=== PATIENT | male | born 1980 | race Caucasian/White ===

== ENCOUNTER 2023-02-21 14:08 | Outpatient (REF) | payer OTHER, SELFPAY ==
[2023-02-21 16:13] LABS: MANUAL DIFF FLAG NO
[2023-02-21 16:19] LABS: Basophils Percent Auto 0.4 % (0-2); Eosinophils Absolute Auto 0.1 X10*3/uL (0.0-0.4); Eosinophils Percent Auto 2.1 % (0-4); Hematocrit 43.9 % (42.0-52.0); Hemoglobin 14.6 g/dl (14.0-18.0); Imm Gran Abs Auto 0.02 X10*3/uL (0.00-0.03); Imm Gran Pct Auto 0.4 % (0.0-0.4); Lymphocytes Absolute Auto 2.1 X10*3/uL (1.2-4.9); Lymphocytes Percent Auto 41.2 % (20-40); Mean Corpuscular HGB Conc 33.3 g/dl (31.0-36.0); Mean Corpuscular Hemoglobin 30.6 pg (27.0-33.0); Mean Platelet Volume 11.3 fL (9.4-12.4); Monocytes Absolute Auto 0.5 X10*3/uL (0.1-1.2); Monocytes Percent Auto 9.1 % (2-11); Neutrophils Absolute Auto 2.4 x10*3/uL (2.0-8.3); Neutrophils Percent Auto 46.8 % (45-73); Platelet Count 333 X10*3/uL (160-400); Red Blood Count 4.77 X10*6/uL (4.60-5.80); Red Cell Distribution Width 14.9 % (11.0-16.0); White Blood Count 5.2 X10*3/uL (4.8-10.8)
[2023-02-21 16:27] LABS: Alanine Aminotransferase 59 U/L (0-40); Albumin Level 4.4 g/dL (3.5-5.0); Alkaline Phosphatase 73 U/L (39-117); Anion Gap 12 (12-20); Aspartate Amino Transferase 34 U/L (5-37); Bilirubin Total 0.2 mg/dL (0.0-1.0); Blood Urea Nitrogen 14 mg/dL (9-16); Calcium 9.5 mg/dL (8.4-10.2); Carbon Dioxide 28 mmol/L (22-29); Chloride 106 mmol/L (96-108); Estimated Glomerular Filt Rate > 60; Glucose Random 92 mg/dL (60-115); Potassium 4.5 mmol/L (3.3-5.1); Sodium 141 mmol/L (135-145); Total Protein 7.3 g/dL (6.5-8.0)
[2023-02-22 09:04] LABS: Syphilis Screen Reactive (Nonreactive)
[2023-02-23 19:08] LABS: HIV RNA PCR Qn Copies 287 copies/mL (NOT DETECTED); HIV RNA PCR Qn Log Copies 2.46 (NOT DETECTED)
[2023-02-25 07:03] LABS: Absolute CD3 Count 1506 cells/uL (840-3060); Absolute CD4 Count 847 cells/uL (490-1740); Absolute CD8 Count 686 cells/uL (180-1170); Absolute Lymphocytes 2475 cells/uL (850-3900); CD4 CD8 Ratio 1.24 (0.86-5.00); Percent CD3 Cells 61 % (57-85); Percent CD4 Cells 34 % (30-61); Percent CD8 Cells 28 % (12-42)
[2023-03-03 14:41] LABS: RPR Quantitative Reactive 1:8 (Nonreactive); T.Pallidum Particle Agg Test Reactive (Nonreactive)
== END 2023-02-21 14:09 | disposition home or self-care (01) ==
LOC: HO.HHCL 14:08
PROVIDERS: Visit Provider Internal Medicine
DX: B20 Human immunodeficiency virus [HIV] disease (principal)
CPT/HCPCS: 36415; 80053; 82550; 85025; 86359; 86360; 86592; 86780; 87536

== ENCOUNTER 2023-04-04 14:27 | Outpatient (REF) | payer OTHER, SELFPAY ==
[2023-04-06 13:18] LABS: HIV RNA PCR Qn Copies 331 copies/mL (NOT DETECTED); HIV RNA PCR Qn Log Copies 2.52 (NOT DETECTED)
[2023-04-14 17:09] LABS: HIV 1 Integrase Proviral DNA DETECTED; HIV 1 PR RT Proviral DNA DETECTED
== END 2023-04-04 14:28 | disposition home or self-care (01) ==
LOC: HO.HHCL 14:27
PROVIDERS: Visit Provider Internal Medicine
DX: B20 Human immunodeficiency virus [HIV] disease (principal)
CPT/HCPCS: 36415; 87536; 87900; 87901; 87906

== ENCOUNTER 2023-06-17 13:23 | Outpatient (REF) | payer OTHER, SELFPAY ==
[2023-06-21 19:00] LABS: HIV RNA PCR Qn Copies 181 copies/mL (NOT DETECTED); HIV RNA PCR Qn Log Copies 2.26 (NOT DETECTED)
== END 2023-06-17 13:24 | disposition home or self-care (01) ==
LOC: HO.HHCL 13:23
PROVIDERS: Visit Provider Internal Medicine
DX: B20 Human immunodeficiency virus [HIV] disease (principal)
CPT/HCPCS: 36415; 87536

== ENCOUNTER 2023-07-09 13:59 | Outpatient (REF) | payer OTHER, SELFPAY ==
[2023-07-09 16:09] LABS: MANUAL DIFF FLAG NO
[2023-07-09 16:19] LABS: Basophils Percent Auto 0.2 % (0-2); Eosinophils Absolute Auto 0.1 X10*3/uL (0.0-0.4); Eosinophils Percent Auto 2.4 % (0-4); Hematocrit 47.3 % (42.0-52.0); Hemoglobin 16.3 g/dl (14.0-18.0); Imm Gran Abs Auto 0.02 X10*3/uL (0.00-0.03); Imm Gran Pct Auto 0.4 % (0.0-0.4); Lymphocytes Percent Auto 36.7 % (20-40); Mean Corpuscular HGB Conc 34.5 g/dl (31.0-36.0); Mean Corpuscular Hemoglobin 31.5 pg (27.0-33.0); Mean Corpuscular Volume 91.3 fL (80.0-98.0); Monocytes Absolute Auto 0.6 X10*3/uL (0.1-1.2); Monocytes Percent Auto 10.2 % (2-11); Neutrophils Absolute Auto 2.7 x10*3/uL (2.0-8.3); Neutrophils Percent Auto 50.1 % (45-73); Platelet Count 260 X10*3/uL (160-400); Red Blood Count 5.18 X10*6/uL (4.60-5.80); Red Cell Distribution Width 15.4 % (11.0-16.0); White Blood Count 5.5 X10*3/uL (4.8-10.8)
[2023-07-09 16:38] LABS: Alanine Aminotransferase 30 U/L (0-40); Albumin Level 4.4 g/dL (3.5-5.0); Alkaline Phosphatase 82 U/L (39-117); Anion Gap 12 (12-20); Aspartate Amino Transferase 22 U/L (5-37); Bilirubin Total 0.2 mg/dL (0.0-1.0); Blood Urea Nitrogen 16 mg/dL (9-16); Calcium 9.6 mg/dL (8.4-10.2); Carbon Dioxide 26 mmol/L (22-29); Chloride 105 mmol/L (96-108); Estimated Glomerular Filt Rate > 60; Glucose Random 88 mg/dL (60-115); Potassium 4.4 mmol/L (3.3-5.1); Sodium 139 mmol/L (135-145); Total Protein 7.8 g/dL (6.5-8.0)
[2023-07-12 10:13] LABS: Absolute CD3 Count 1517 cells/uL (840-3060); Absolute CD4 Count 859 cells/uL (490-1740); Absolute CD8 Count 669 cells/uL (180-1170); Absolute Lymphocytes 2170 cells/uL (850-3900); CD4 CD8 Ratio 1.28 (0.86-5.00); Percent CD3 Cells 70 % (57-85); Percent CD4 Cells 40 % (30-61); Percent CD8 Cells 31 % (12-42)
[2023-07-12 14:22] LABS: HIV RNA PCR Qn Copies 48 copies/mL (NOT DETECTED); HIV RNA PCR Qn Log Copies 1.68 (NOT DETECTED)
== END 2023-07-09 14:00 | disposition home or self-care (01) ==
LOC: HO.HHCL 13:59
PROVIDERS: Visit Provider Internal Medicine
DX: B20 Human immunodeficiency virus [HIV] disease (principal)
CPT/HCPCS: 36415; 80053; 85025; 86359; 86360; 87536

== ENCOUNTER 2023-10-24 14:40 | Outpatient (REF) | payer MEDICARE, SELFPAY ==
--- NOTE | ~2023-10-24 | XR_ITS ---
EXAMINATION: XR LUMBOSACRAL SPINE CLINICAL INFORMATION: Low back pain without sciatica COMPARISON: None available. TECHNIQUE: 5 views of the lumbosacral spine. FINDINGS: Mild degenerative changes are present spine with spondylitic endplate changes. There is marked grade 1 anterolisthesis of L5 upon S1 with a suspicion of bilateral pars defects at L5. Vertebral body heights and disc spaces are relatively well maintained. There is some mild narrowing at L4-L5. No fractures or bony destructive lesions XR/XR lumbar spine 2-3V IMPRESSION: Grade 1 anterolisthesis of L5 upon S1 with suspicion of bilateral pars defects at L5.
== END 2023-10-24 14:41 | disposition home or self-care (01) ==
LOC: HO.HHCX 14:40
PROVIDERS: Visit Provider Emergency Medicine
DX: M54.50 Low back pain, unspecified (principal)
CPT/HCPCS: 72100

== ENCOUNTER 2024-03-06 13:46 | Outpatient (REF) | payer OTHER, SELFPAY ==
[2024-03-06 16:29] LABS: MANUAL DIFF FLAG NO
[2024-03-06 16:39] LABS: Basophils Percent Auto 0.4 % (0-2); Eosinophils Absolute Auto 0.1 X10*3/uL (0.0-0.4); Eosinophils Percent Auto 2.6 % (0-4); Hematocrit 45.4 % (42.0-52.0); Hemoglobin 15.3 g/dl (14.0-18.0); Imm Gran Abs Auto 0.01 X10*3/uL (0.00-0.03); Imm Gran Pct Auto 0.2 % (0.0-0.4); Lymphocytes Absolute Auto 2.3 X10*3/uL (1.2-4.9); Lymphocytes Percent Auto 46.6 % (20-40); Mean Corpuscular HGB Conc 33.7 g/dl (31.0-36.0); Mean Corpuscular Hemoglobin 31.4 pg (27.0-33.0); Mean Platelet Volume 11.3 fL (9.4-12.4); Monocytes Absolute Auto 0.4 X10*3/uL (0.1-1.2); Monocytes Percent Auto 7.6 % (2-11); Neutrophils Absolute Auto 2.1 x10*3/uL (2.0-8.3); Neutrophils Percent Auto 42.6 % (45-73); Platelet Count 317 X10*3/uL (160-400); Red Blood Count 4.88 X10*6/uL (4.60-5.80); Red Cell Distribution Width 14.3 % (11.0-16.0)
[2024-03-06 17:01] LABS: Alanine Aminotransferase 30 U/L (0-40); Albumin Level 4.5 g/dL (3.5-5.0); Alkaline Phosphatase 95 U/L (39-117); Anion Gap 12 (12-20); Aspartate Amino Transferase 24 U/L (5-37); Bilirubin Total 0.3 mg/dL (0.0-1.0); Blood Urea Nitrogen 13 mg/dL (9-16); Calcium 10.3 mg/dL (8.4-10.2); Carbon Dioxide 25 mmol/L (22-29); Chloride 106 mmol/L (96-108); Cholesterol 225 mg/dL (<200); Estimated Glomerular Filt Rate > 60; Glucose Random 88 mg/dL (60-115); HDL Cholesterol 40 mg/dL (>40); LDL Cholesterol Calculated 159 mg/dL (<100); Potassium 4.3 mmol/L (3.3-5.1); Sodium 139 mmol/L (135-145); Triglycerides 134 mg/dL (<150)
[2024-03-06 17:50] LABS: Reflex LDLD? No
[2024-03-06 18:17] LABS: CT PCR NOT DETECTED (Not Detect.); NG PCR NOT DETECTED (Not Detect.)
[2024-03-07 04:55] LABS: Hepatitis A Antibody IgG REACTIVE (Nonreactive); ~Hepatitis A Antibody IgG 2.84 S/CO (0.00-0.99)
[2024-03-07 04:59] LABS: HBS Num1 26.98 mIU/mL (0-7.99); HBc Num1 0.06 S/CO (0.00-0.79); HBsAGNum1 0.42 S/CO (0.00-0.99); Hepatitis B Core Antibody Nonreactive (Nonreactive); Hepatitis B Surface Antigen Negative (Negative); ~HepC Num1 0.22 S/CO (0.00-0.79); ~Hepatitis B Surface Antibody REACTIVE (Nonreactive); ~Hepatitis C Antibody Nonreactive (Nonreactive)
[2024-03-07 05:00] LABS: Syphilis Screen Reactive (Nonreactive)
[2024-03-09 10:57] LABS: TS Negative Control Passed; TS Panel A 0; TS Panel B 0; TS Positive Control Passed; TSpotTB Negative (Negative)
[2024-03-10 02:33] LABS: HIV RNA PCR Qn Copies 53 copies/mL (NOT DETECTED); HIV RNA PCR Qn Log Copies 1.72 (NOT DETECTED)
[2024-03-10 22:49] LABS: Absolute CD3 Count 1596 cells/uL (840-3060); Absolute CD4 Count 859 cells/uL (490-1740); Absolute CD8 Count 769 cells/uL (180-1170); Absolute Lymphocytes 2352 cells/uL (850-3900); CD4 CD8 Ratio 1.12 (0.86-5.00); Percent CD3 Cells 68 % (57-85); Percent CD4 Cells 37 % (30-61); Percent CD8 Cells 33 % (12-42)
[2024-03-12 09:09] LABS: RPR Quantitative Reactive 1:8 (Nonreactive); T.Pallidum Particle Agg Test Reactive (Nonreactive)
== END 2024-03-06 13:47 | disposition home or self-care (01) ==
LOC: HO.HHCL 13:46
PROVIDERS: Visit Provider Internal Medicine
DX: B20 Human immunodeficiency virus [HIV] disease (principal)
CPT/HCPCS: 36415; 80053; 80061; 85025; 86359; 86360; 86481; 86592; 86704; 86706; 86708; 86780; 86803; 87340; 87491; 87536; 87591

== ENCOUNTER 2024-08-25 13:42 | Outpatient (REF) | payer OTHER, SELFPAY ==
[2024-08-25 16:35] LABS: MANUAL DIFF FLAG NO
[2024-08-25 16:55] LABS: Basophils Percent Auto 0.2 % (0-2); Eosinophils Absolute Auto 0.2 X10*3/uL (0.0-0.4); Eosinophils Percent Auto 3.1 % (0-4); Hematocrit 42.5 % (42.0-52.0); Hemoglobin 15.1 g/dl (14.0-18.0); Imm Gran Abs Auto 0.01 X10*3/uL (0.00-0.03); Imm Gran Pct Auto 0.2 % (0.0-0.4); Lymphocytes Absolute Auto 2.6 X10*3/uL (1.2-4.9); Lymphocytes Percent Auto 49.6 % (20-40); Mean Corpuscular HGB Conc 35.5 g/dl (31.0-36.0); Mean Corpuscular Hemoglobin 32.1 pg (27.0-33.0); Mean Corpuscular Volume 90.2 fL (80.0-98.0); Mean Platelet Volume 11.5 fL (9.4-12.4); Monocytes Absolute Auto 0.5 X10*3/uL (0.1-1.2); Monocytes Percent Auto 9.7 % (2-11); Neutrophils Absolute Auto 1.9 x10*3/uL (2.0-8.3); Neutrophils Percent Auto 37.2 % (45-73); Platelet Count 273 X10*3/uL (160-400); Red Blood Count 4.71 X10*6/uL (4.60-5.80); Red Cell Distribution Width 14.3 % (11.0-16.0); White Blood Count 5.1 X10*3/uL (4.8-10.8)
[2024-08-25 17:20] LABS: Alanine Aminotransferase 24 U/L (0-40); Albumin Level 4.3 g/dL (3.5-5.0); Alkaline Phosphatase 92 U/L (39-117); Anion Gap 11 (12-20); Aspartate Amino Transferase 27 U/L (5-37); Bilirubin Total 0.3 mg/dL (0.0-1.0); Blood Urea Nitrogen 16 mg/dL (9-16); Calcium 9.4 mg/dL (8.4-10.2); Carbon Dioxide 26 mmol/L (22-29); Chloride 106 mmol/L (96-108); Estimated Glomerular Filt Rate > 60; Glucose Random 95 mg/dL (60-115); Potassium 4.4 mmol/L (3.3-5.1); Sodium 139 mmol/L (135-145); Total Protein 7.7 g/dL (6.5-8.0)
[2024-08-26 14:19] LABS: HIV RNA PCR Qn Copies <20 DETECTED copies/mL (NOT DETECTED); HIV RNA PCR Qn Log Copies <1.30 DETECTED (NOT DETECTED)
[2024-08-27 14:57] LABS: RPR Rapid Plasma Reagin REACTIVE (NON-REACTIVE)
[2024-08-29 12:59] LABS: Absolute CD3 Count 1654 cells/uL (840-3060); Absolute CD4 Count 866 cells/uL (490-1740); Absolute CD8 Count 811 cells/uL (180-1170); Absolute Lymphocytes 2485 cells/uL (850-3900); CD4 CD8 Ratio 1.07 (0.86-5.00); Percent CD3 Cells 67 % (57-85); Percent CD4 Cells 35 % (30-61); Percent CD8 Cells 33 % (12-42)
== END 2024-08-25 13:43 | disposition home or self-care (01) ==
LOC: HO.HHCL 13:42
PROVIDERS: Visit Provider Internal Medicine
DX: B20 Human immunodeficiency virus [HIV] disease (principal)
CPT/HCPCS: 36415; 80053; 85025; 86359; 86360; 86592; 86593; 87536

== ENCOUNTER 2024-10-01 17:44 | Outpatient (REF) | payer OTHER, SELFPAY ==
[2024-10-12 10:29] LABS: HPV MRNA E6/E7 Rectal NOT DETECTED
== END 2024-10-01 17:45 | disposition home or self-care (01) ==
LOC: HO.HHCLNP 17:44
PROVIDERS: Visit Provider Internal Medicine
DX: Z21 Asymptomatic human immunodeficiency virus [HIV] infection status (principal)
CPT/HCPCS: 36415; 87624; 88112

== ENCOUNTER 2024-12-30 15:25 | Outpatient (REF) | payer OTHER, SELFPAY ==
--- OUTSIDE RECORDS SUMMARY | 2024-12-30 15:46 | XMS_ITS | Clinical Summary ---
Author Organization [facility] Address [address] [place] [phone] Phone Care Team Providers Care Lens Molding Equipment Operator Name Role Phone Physician, Pcp Unknown Primary Care Provider Evelina vailable Allergies No known active allergies Social History Tobacco Use Types Packs/Day Years Used Date Smoking Tobacco: Never Assessed Sex and Gender Information Value Date Recorded Sex Assigned at Not on file Legal Sex Male 1:35 PM EST Gender Identity Not on file Sexual Orientation Not on file Last Filed Vital Signs Vital Sign Reading Time Taken Comments Blood Pressure 133/93 05/22/2024 4:35 PM EST Pulse 51 05/22/2024 4:35 PM EST Temperature 36.9 C (98.4 F) 05/22/2024 4:35 PM EST Respiratory Rate - - Oxygen Saturation 100% 05/22/2024 4:35 PM EST Inhaled Oxygen Concentration - - Weight 63.5 kg (140 lb) 05/22/2024 4:35 PM EST Height 165.1 cm (5' 5 ) 05/22/2024 4:35 PM EST Body Mass Index 23.3 05/22/2024 4:35 PM EST Plan of Treatment Health Maintenance Due Date Last Done Comments DTaP,Tdap,and Td Vaccines (1 - Tdap) 1997 Hepatitis B Vaccines (1 of 3 - 19+ 3-dose series) 1997 Cholesterol Screening (Lipid Panel) 05/08/2022 Colorectal Cancer Screening: Colonoscopy 05/08/2022 HIV Screening 05/08/2022 Hepatitis C Screening 05/08/2022 Medicare Annual Wellness Visit 05/08/2022 Social Influencers of Health Screening 05/08/2022 COVID-19 Vaccine (3 - 2023-2 5 season) 2024 10/29/2020, 10/01/2020 Depression Screening 06/10/2024 Influenza Vaccine (#1) 2025 HIB Vaccines Aged Out No longer eligi ble based on patient's age to complete this topic HPV Vaccines Aged Out No longer eligi ble based on patient's age to complete this topic Hepatitis A Vaccines Aged Out No long er eligible based on patient's age to complete this topic IPV Vaccines Aged Out No longer eligi ble based on patient's age to complete this topic MMR Vaccines Aged Out No longer eligi ble based on patient's age to complete this topic Meningococcal ACWY Vaccine Aged Out N o longer eligible based on patient's age to complete this topic Meningococcal B Vaccine Aged Out No l onger eligible based on patient's age to complete this topic Pneumococcal Vaccine: Pediatrics (0 to 5 Years) and At-Risk Patients (6 to 49 Years) Aged Out No longer eligible b ased on patient's age to complete this topic RSV Immunization Patients Under 20 months Aged Out No longer eligible b ased on patient's age to complete this topic Varicella Vaccines Aged Out No longer eligible based on patient's age to complete this topic Insurance MEDICARE Member Subscriber Plan / Payer (Ef fective 2024-Present) Name:Marvin Morgan Relation to Subscriber:Self Name:Marvin Morgan Payer ID:[id number] Group ID:[id number] Type:Not on file Address: [facility] [address] [id number] Care Teams Lens Molding Equipment Operator Relationship Specialty Start Date End Date Physician, Pcp Unknown PCP - General 05/22/24
[2024-12-30 16:34] LABS: MANUAL DIFF FLAG NO
[2024-12-30 16:40] LABS: Hematocrit 39.0 % (42.0-52.0); Hemoglobin 13.5 g/dl (14.0-18.0); Imm Gran Abs Auto 0.02 X10*3/uL (0.00-0.03); Imm Gran Pct Auto 0.3 % (0.0-0.4); Lymphocytes Absolute Auto 2.7 X10*3/uL (1.2-4.9); Mean Corpuscular HGB Conc 34.6 g/dl (31.0-36.0); Mean Corpuscular Hemoglobin 31.7 pg (27.0-33.0); Mean Corpuscular Volume 91.5 fL (80.0-98.0); NRBC Abs Auto 0.000 X10*3/uL (0.0-0.012); NRBC Pct Auto 0.0 /100WBC (0.0-0.2); Platelet Count 302 X10*3/uL (160-400); Red Blood Count 4.26 X10*6/uL (4.60-5.80); White Blood Count 6.6 X10*3/uL (4.8-10.8)
[2024-12-30 17:14] LABS: Alanine Aminotransferase 25 U/L (0-40); Albumin Level 4.2 g/dL (3.5-5.0); Alkaline Phosphatase 73 U/L (39-117); Anion Gap 9 (12-20); Aspartate Amino Transferase 38 U/L (5-37); Blood Urea Nitrogen 14 mg/dL (9-16); Calcium 8.9 mg/dL (8.4-10.2); Carbon Dioxide 26 mmol/L (22-29); Chloride 109 mmol/L (96-108); Estimated Glomerular Filt Rate > 60; Potassium 3.7 mmol/L (3.3-5.1); Sodium 140 mmol/L (135-145); Total Protein 7.0 g/dL (6.5-8.0)
[2024-12-31 13:28] LABS: Iron 78 mcg/dL (45-160); Percent Iron Saturation 30 % (15-50); Total Iron Binding Capacity 256 mcg/dL (228-428); Unsaturated Iron Binding 178 ug/dL
[2024-12-31 13:41] LABS: Ferritin 171 ng/mL (20-250)
[2025-01-02 03:52] LABS: Rapid Plasma Reagin Ab Titer 1:4
[2025-01-03 15:13] LABS: Absolute CD3 Count 1948 cells/uL (840-3060); Absolute CD8 Count 847 cells/uL (180-1170); Percent CD3 Cells 66 % (57-85); Percent CD8 Cells 29 % (12-42)
== END 2024-12-30 15:26 | disposition home or self-care (01) ==
LOC: HO.HHCL 15:25
PROVIDERS: PCP Student in an Organized Health Care Education/Training Program; Visit Provider Student in an Organized Health Care Education/Training Program
DX: Z00.00 Encounter for general adult medical examination without abnormal findings (principal); Z21 Asymptomatic human immunodeficiency virus [HIV] infection status; Z11.3 Encounter for screening for infections with a predominantly sexual mode of transmission
CPT/HCPCS: 36415; 80053; 82728; 83540; 85025; 86359; 86360; 86592; 86593

== ENCOUNTER 2025-02-25 15:00 | Outpatient (REF) | payer MEDICARE, MEDICAID, SELFPAY ==
[2025-02-25 16:12] LABS: MANUAL DIFF FLAG NO
[2025-02-25 16:15] LABS: Hematocrit 42.0 % (42.0-52.0); Hemoglobin 15.0 g/dl (14.0-18.0); Imm Gran Abs Auto 0.02 X10*3/uL (0.00-0.03); Imm Gran Pct Auto 0.2 % (0.0-0.4); Lymphocytes Absolute Auto 2.6 X10*3/uL (1.2-4.9); Mean Corpuscular HGB Conc 35.7 g/dl (31.0-36.0); Mean Corpuscular Hemoglobin 32.3 pg (27.0-33.0); Mean Corpuscular Volume 90.5 fL (80.0-98.0); NRBC Abs Auto 0.000 X10*3/uL (0.0-0.012); NRBC Pct Auto 0.0 /100WBC (0.0-0.2); Platelet Count 294 X10*3/uL (160-400); Red Blood Count 4.64 X10*6/uL (4.60-5.80); White Blood Count 8.0 X10*3/uL (4.8-10.8)
[2025-02-25 16:26] LABS: Hemoglobin A1C 145.1436 umol/L; Total Hemoglobin (HGBA1C) 3872.6064 umol/L
--- OUTSIDE RECORDS SUMMARY | 2025-02-25 16:39 | XMS_ITS | Clinical Summary ---
Author Organization [facility] Address [address] [place] [phone] Phone Care Team Providers Care Hearing And Speech Assistant Name Role Phone Physician, Pcp Unknown Primary [...] 05/08/2022 Social Influencers of Health Screening 05/08/2022 Depression Screening 06/10/2024 COVID-19 Vaccine (3 - 2024-2 6 season) 2025 10/29/2020, 10/01/2020 Influenza Vaccine (#1) 2025 RSV Immunization Adult Patients (1 - 1-dose 75+ series) 2053 HIB Vaccines Aged Out No longer eligi [...] ID:[id number] Group ID:[id number] Type:Not on file Address: [facility] [address] [id number] Care Teams Hearing And Speech Assistant Relationship Specialty Start Date End Date Physician, Pcp Unknown PCP - General 05/22/24
[2025-02-25 16:41] LABS: Alanine Aminotransferase 28 U/L (0-40); Albumin Level 4.7 g/dL (3.5-5.0); Alkaline Phosphatase 87 U/L (39-117); Anion Gap 12 (12-20); Aspartate Amino Transferase 23 U/L (5-37); Blood Urea Nitrogen 17 mg/dL (9-16); Calcium 9.9 mg/dL (8.4-10.2); Carbon Dioxide 26 mmol/L (22-29); Chloride 104 mmol/L (96-108); Estimated Glomerular Filt Rate > 60; Iron 66 mcg/dL (45-160); Percent Iron Saturation 22 % (15-50); Potassium 4.4 mmol/L (3.3-5.1); Sodium 138 mmol/L (135-145); Total Iron Binding Capacity 296 mcg/dL (228-428); Total Protein 7.8 g/dL (6.5-8.0); Unsaturated Iron Binding 230 ug/dL
[2025-02-25 16:54] LABS: Ferritin 152 ng/mL (20-250)
[2025-02-25 17:10] LABS: Folate 7.4 ng/mL (> or = 4.0); Vitamin B12 519 pg/mL (200-900)
[2025-02-26 08:42] LABS: HBS Num1 18.12 mIU/mL (0-7.99); HBsAGNum1 0.42 S/CO (0.00-0.99); Hepatitis B Surface Antigen Negative (Negative); ~HepC Num1 0.16 S/CO (0.00-0.79); ~Hepatitis B Surface Antibody REACTIVE (Nonreactive); ~Hepatitis C Antibody Nonreactive (Nonreactive)
[2025-02-26 13:14] LABS: Rapid Plasma Reagin Ab Titer 1:4
[2025-02-26 15:33] LABS: HIV RNA PCR Qn Copies 86 copies/mL (NOT DETECTED); HIV RNA PCR Qn Log Copies 1.93 (NOT DETECTED)
[2025-03-02 03:08] LABS: TS Negative Control Passed; TS Panel A 0; TS Panel B 0; TS Positive Control Passed; TSpotTB Negative (Negative)
[2025-03-03 17:33] LABS: Absolute CD3 Count 1836 cells/uL (840-3060); Absolute CD8 Count 824 cells/uL (180-1170); Percent CD3 Cells 79 % (57-85); Percent CD8 Cells 35 % (12-42)
== END 2025-02-25 15:01 | disposition home or self-care (01) ==
LOC: HO.HHCL 15:00
PROVIDERS: PCP Student in an Organized Health Care Education/Training Program; Referring Provider Student in an Organized Health Care Education/Training Program; Visit Provider Internal Medicine
DX: Z00.00 Encounter for general adult medical examination without abnormal findings (principal); Z11.4 Encounter for screening for human immunodeficiency virus [HIV]; Z11.3 Encounter for screening for infections with a predominantly sexual mode of transmission; Z21 Asymptomatic human immunodeficiency virus [HIV] infection status; Z79.899 Other long term (current) drug therapy
CPT/HCPCS: 36415; 80053; 82607; 82728; 82746; 83036; 83540; 85025; 86359; 86360; 86481; 86592; 86593; 86706; 86803; 87340; 87536